=== PATIENT | male | born 1960 | race Caucasian/White ===

== ENCOUNTER → 2018-02-10 | Emergency (ER) | payer OTHER ==
[~2018-02-10] VITALS: Ht 180.3 cm; Wt 104.3 kg
[~2018-02-10] MED LIST: ASPIR 8181 MG; DIOVAN HCT 1601 EACH; METFORMIN HCL500 MG; ZOCOR5 MG
== END | disposition left against medical advice (07) ==
LOC: ER 13:58
DX: M77.32 Calcaneal spur, left foot (principal)

== ENCOUNTER 2018-02-23 13:55 | Emergency (ER) | payer OTHER ==
[~2018-02-23] VITALS: Ht 180.3 cm; Wt 104.3 kg
== END 2018-02-23 15:25 | disposition home or self-care (01) ==
LOC: ER 13:55
DX: B34.9 Viral infection, unspecified (principal); J11.1 Influenza due to unidentified influenza virus with other respiratory manifestations

== ENCOUNTER 2018-02-28 00:11 | Emergency (ER) | payer OTHER ==
[~2018-02-28] VITALS: Ht 180.3 cm; Wt 104.3 kg
[2018-02-28] MEDS ORDERED: LEVSIN/SL0.125 MG SL (08:11)
== END 2018-02-28 08:21 | disposition home or self-care (01) ==
LOC: ER 00:11
DX: R10.84 Generalized abdominal pain (principal)

== ENCOUNTER 2018-03-31 07:54 | Outpatient (CLI) | payer OTHER ==
[~2018-03-31 07:54] MED LIST changes: +LEVSIN/SL0.125 MG SL
== END 2018-03-31 07:56 | disposition home or self-care (01) ==
LOC: TOM 07:54
DX: R10.11 Right upper quadrant pain (principal); R10.31 Right lower quadrant pain

== ENCOUNTER 2018-05-16 08:36 | Outpatient (CLI) | payer OTHER | END 2018-05-16 14:59 | disposition home or self-care (01) | LOC: TOM 08:36 | DX: K35.3 Acute appendicitis with localized peritonitis (principal) ==

== ENCOUNTER 2018-10-27 09:35 | Outpatient (CLI) | payer OTHER | END 2018-10-27 17:00 | disposition home or self-care (01) | LOC: SONOGRAMA 09:35 | DX: R13.12 Dysphagia, oropharyngeal phase (principal) ==